=== PATIENT | female | born 1955 | race African-American/Black ===

== ENCOUNTER 2017-12-01 08:23 | Day surgery (SDC) | payer OTHER ==
[~2017-12-01] VITALS: Ht 161.3 cm; Wt 96.2 kg
[2017-12-01] VITALS (14 sets, daily range): BP systolic 105–136; BP diastolic 56–75
--- NOTE | 2017-12-01 08:22 | Pre-Procedure Note/Attestation ---
Pre-Procedure Note/Attestation Complete Prior to Procedure Planned Procedure: left Procedure Narrative: left wrist de Quervain release Indications for Procedure Pre-Operative Diagnosis: left wrist de Quervain tenosynovitis Attestation I attest that I discussed the nature of the procedure; its benefits; risks and complications; and alternatives (and the risks and benefits of such alternatives ), prior to the procedure, with the patient (or the patient's legal customer account representative). I attest that, if there was a reasonable possibility of needing a blood transfusion, the patient (or the patient's legal customer account representative) was given the [facility] standardized written summary, pursuant to the Zack Penuelas Blood Safety Act ([place] Health and Safety Code # 1645, as amended). I attest that I re-evaluated the patient just prior to the surgery and that there has been no change in the patient's H&P, except as documented below: NONE FERMÍN OLEA Dec 01, 2017 08:22
[~2017-12-01 08:23] MED LIST: ceFAZolin sod 1 GM in D5W 55 ML IVPB ONE; oxyCONTIN 20mg tab ORAL ONE
[2017-12-01] MEDS ORDERED: METOPROLOL-HCT1 EAC3 ORAL (09:03)
[2017-12-01] MEDS ORDERED: Bupivacaine 0.5% Inj 30 ml vial INJ ONE (10:29)
[2017-12-01] MEDS ORDERED: Lidocaine 1% Plain 30 ml INJ ONE (10:30)
[2017-12-01] MEDS ORDERED: LR 1000ml 1,000 ML IVLG SCH (10:44)
[2017-12-01] MEDS ORDERED: Norco 5mg/325mg tab ORAL PRN ×2 (10:45→17:01)
[2017-12-01] MEDS ORDERED: Hydromorphone 0.5mg/0.5ml inj IVP PRN (10:45)
[2017-12-01] MEDS ORDERED: oxyCODONE HCL/Acetaminophen 5/325mg ORAL PRN (10:45)
[2017-12-01] MEDS ORDERED: Midazolam 2mg/2ml Inj IVP PRN (10:45)
[2017-12-01] MEDS ORDERED: LORazepam Inj 2mg/ml 1ml IV PRN (10:45)
[2017-12-01] MEDS ORDERED: Ketorolac 30mg Inj IV PRN ×2 (10:45)
[2017-12-01] MEDS ORDERED: HYDROcodone/Acetamin 7.5/325 tab ORAL PRN (10:45)
[2017-12-01] MEDS ORDERED: Atropine Inj 1mg/10ml Syr IV PRN (10:45)
[2017-12-01] MEDS ORDERED: fentaNYL 100 mcg/2 mL IV PRN (10:45)
[2017-12-01] MEDS ORDERED: Labetalol 5mg/ml 20ml vial IV PRN (10:45)
[2017-12-01] MEDS ORDERED: DiphenhydrAMINE 50mg/ml Inj IVP PRN (10:45)
--- NOTE | 2017-12-01 10:51 | Anethesia Preoperative Eval ---
Anesthesia Pre-op PMH/ROS General Date of Evaluation: Dec 01, 2017 Time of Evaluation: 10:56 Anesthesiologist: Charity ASA Score: ASA 3 Mallampati Score Class I : Soft palate, uvula, fauces, pillars visible Class II: Soft palate, uvula, fauces visible Class III: Soft palate, base of uvula visible Class IV: Only hard plate visible Mallampati Classification: Class II Surgeon: Bernabe Diagnosis: L Hand Pain Surgical Procedure: L Hand DeQuervains Release Anesthesia History: none Family History: no anesthesia problems Allergies: Coded Allergies: SULFA (SULFONAMIDE ANTIBIOTICS) (Verified Allergy, Unknown, 11/26/17) Medications: see eMAR Past Medical History Cardiovascular: Reports: HTN, other - HL Gastrointestinal/Genitourinary: Reports: GERD Neurologic/Psychiatric: Reports: depression/anxiety Other: obesity - BMI 39 PSxH Narrative: Mauri HERNÁNDEZ CTR SX Anesthesia Pre-op Phys. Exam Physician Exam Last Vital Signs Date Time Temp Pulse Resp B/P (MAP) Pulse Ox O2 Delivery O2 Flow Rate FiO2 12/01/17 09:03 98.2 83 20 136/73 98 Room Air 98.2 Constitutional: NAD Neurologic: CN 2-12 intact Cardiovascular: RRR Respiratory: CTA Gastrointestinal: S/NT/ND Airway Exam Mallampati Score: Class II MO: full ROM: limited Teeth: missing, intact Anesthesia Pre-op A/P Risk Assessment & Plan Assessment: ASA 3 Plan: GA Status Change Before Surgery: No Pre-Antibiotics Dru Gram Ancef IV Given Within 1 Hr of Incision: Yes Time Given: 11:16 Keith Nash MD Dec 01, 2017 10:51
--- NOTE | 2017-12-01 10:52 | 48 Hour Post Anesthesia Eval ---
Post Anesthesia Evaluation Procedure: L Hand DeQuervains Release Date of Evaluation: Dec 01, 2017 Time of Evaluation: 14:16 Blood Pressure Systolic: 136 0: 78 Pulse Rate: 83 Respiratory Rate: 18 Temperature (Fahrenheit): 98.2 O2 Sat by Pulse Oximetry: 100 Airway: patent Nausea: No Vomiting: No Pain Intensity: 2 Hydration Status: adequate Cardiopulmonary Status: Stable Mental Status/LOC: patient returned to baseline Follow-up Care/Observations: 0 Post-Anesthesia Complications: 0 Follow-up care needed: ready to discharge Keith Nash MD Dec 01, 2017 10:52
--- NOTE | 2017-12-01 10:52 | Immediate Post-Op Evaluation ---
Immediate Post-Op Evalulation Immediate Post-Op Evalulation Procedure: L Hand DeQuervains Release Date of Evaluation: Dec 01, 2017 Time of Evaluation: 12:10 IV Fluids: 300 LR Blood Products: 0 Estimated Blood Loss: 7 Urinary Output: 0 Blood Pressure Systolic: 106 Blood Pressure Diastolic: 56 Pulse Rate: 76 Respiratory Rate: 16 O2 Sat by Pulse Oximetry: 100 Temperature (Fahrenheit): 97.8 Pain Score (1-10): 2 Nausea: No Vomiting: No Complications 0 Patient Status: awake, reacts, patent, none Hydration Status: adequate Dru Gram Ancef Iv Given Within 1 Hr of Incision: Yes Time Given: 11:16 Keith Nash MD Dec 01, 2017 10:52
[2017-12-01] MEDS ORDERED: Sterile Water Irrig 1000ml IRRIG ONE (11:00)
[2017-12-01] MEDS ORDERED: Dexamethasone 4mg/ml vial ONE (11:00)
[2017-12-01] MEDS ORDERED: Lidocaine 1% MPF 10mg/ml 5ml ONE (11:00)
[2017-12-01] MEDS ORDERED: NS Irrig 1000ml ONE (11:00)
[2017-12-01] MEDS ORDERED: Propofol 200mg/20ml IV ONE (11:00)
[2017-12-01] MEDS ORDERED: Midazolam 2mg/2ml Inj ONE (11:00)
[2017-12-01] MEDS ORDERED: LR 1000ml ONE (11:00)
--- NOTE | 2017-12-01 11:38 | Brief Operative Note ---
Immediate Post Operative Note Operative Note Chief Complaint: left wrist pain Pre-op Diagnosis: left wrist de quervain tenosynovitis Procedure: left wrist de quervain release Post-op Diagnosis: same as pre-op Findings: consistent w/pre-op dx studies Surgeon: md yang Boilermaker Welder: shai díaz Anesthesiologist: md santana Anesthesia: local, MAC Specimen: none Complications: none Condition: stable Fluids: ns Estimated Blood Loss: minimal Drains: none Implant(s) used?: No DOUGLAS DÍAZ Dec 01, 2017 11:38
--- NOTE | 2017-12-01 17:00 | Operative Note - Dictated ---
DATE OF OPERATION: 12/01/2017 PREOPERATIVE DIAGNOSIS: Left de Quervain tenosynovitis. POSTOPERATIVE DIAGNOSIS: Left de Quervain tenosynovitis. PROCEDURE: 1. Left wrist de Quervain release. 2. Left wrist extensor pollicis brevis and abductor pollicis longus tenosynovectomy. SURGEON: Osmar Kidd M.D. SERVER MANAGER: Lilian Tirado PA-C. ANESTHESIOLOGIST: Dr. Nash. ANESTHESIA: LMA anesthesia. ESTIMATED BLOOD LOSS: Less than 20 mL. TOURNIQUET TIME: 20 minutes. COMPLICATIONS: None. BRIEF HISTORY: The patient is a pleasant 62-year-old female, who had recurrent tenosynovitis. After she failed nonoperative treatment and multiple rounds of injection and physical therapy, she opted for surgical treatment as described above. OPERATIVE PROCEDURE: The patient was brought to the operating table and was placed supine. All pressure points were well padded. General LMA anesthesia was induced. The left hand was prepped and draped in usual sterile fashion. Left hand was exsanguinated and tourniquet was inflated to 275 mmHg. At this point, an incision was made over the first dorsal compartment. Incision was taken through the subcutaneous tissue. At this point, blunt dissection was performed to isolate the superficial radial sensory nerves. These were retracted back. The first dorsal compartment was identified and the first dorsal compartment was then released distally and proximally completely. At this point, there were some areas of crystals of previous cortisone injection which were resected. At this point, there was extensive tenosynovitis of the first dorsal compartment and tenosynovectomy of the two tendons was then performed without any complications. The tendons were then taken out of the wound and the thumb was then placed into flexion and extension, and the tendons were visualized and there were no tears. The wounds were thoroughly irrigated using copious amount of fluid. The skin incision was closed using two horizontal mattress 4-0 nylon sutures. Sterile dressing was applied. The area of the wound was injected with 0.5% Marcaine plain. Sterile dressing was applied and compression dressing was applied. The patient was taken to recovery room in stable condition. All lap counts and instrument counts were correct. Osmar Kiran Kidd DR: Valeriy JOB#: [id number] CC:
[2017-12-01] MEDS ORDERED: HYDROmorphone 1mg/ml Carpuject SUBQ PRN (17:01)
[2017-12-01] MEDS ORDERED: D5 1/2NS 1,000 ML IV SCH (17:01)
[2017-12-01] MEDS ORDERED: Tylenol #3 tab (300mg/30mg) ORAL PRN (17:01)
== END 2017-12-01 13:35 | disposition home or self-care (01) ==
LOC: SUR 08:23
DX: M65.4 Radial styloid tenosynovitis [de Quervain] (principal); I10 Essential (primary) hypertension; K21.9 Gastro-esophageal reflux disease without esophagitis; F32.9 Major depressive disorder, single episode, unspecified; F41.9 Anxiety disorder, unspecified; Z88.2 Allergy status to sulfonamides; Z90.710 Acquired absence of both cervix and uterus
CPT/HCPCS: 25000; 25116; J1100; J2001; J2250; J2405; J2704; J3490; J7120; 94003; 94150